=== PATIENT | male | born 1980 | race Caucasian/White ===

== ENCOUNTER 2021-11-09 10:02 | Outpatient (REF) | payer OTHER, SELFPAY ==
--- NOTE | ~2021-11-09 | XR_ITS ---
EXAMINATION: XR HAND, LEFT CLINICAL INFORMATION: Pain COMPARISON: None TECHNIQUE: PA, lateral, and oblique views of the left hand. FINDINGS: No deformity of the fifth digit. There is a medullary lucent lesion proximal phalanx fourth digit. No definite matrix or fracture seen. No pathologic fracture. Cortex intact XR/XR hand LT min 3V IMPRESSION: No fracture. Lucent lesion within the fourth proximal phalanx. Appearance favors an enchondroma.
== END 2021-11-09 10:03 | disposition home or self-care (01) ==
LOC: HO.HMGCX 10:02
PROVIDERS: PCP Family Medicine; Visit Provider Physician Assistant
DX: M79.645 Pain in left finger(s) (principal)
CPT/HCPCS: 73130

== ENCOUNTER 2021-12-31 08:42 | Outpatient (REF) | payer OTHER, SELFPAY ==
[2021-12-31 11:22] LABS: MANUAL DIFF FLAG NO
[2021-12-31 11:26] LABS: Basophils Absolute Auto 0.1 X10*3/uL (0.0-0.2); Basophils Percent Auto 1.1 % (0-2); Eosinophils Absolute Auto 0.1 X10*3/uL (0.0-0.4); Eosinophils Percent Auto 1.9 % (0-4); Hematocrit 37.4 % (42.0-52.0); Hemoglobin 12.7 g/dl (14.0-18.0); Imm Gran Abs Auto 0.02 X10*3/uL (0.00-0.03); Imm Gran Pct Auto 0.3 % (0.0-0.4); Lymphocytes Absolute Auto 1.9 X10*3/uL (1.2-4.9); Lymphocytes Percent Auto 26.7 % (20-40); Mean Platelet Volume 10.2 fL (9.4-12.4); Monocytes Absolute Auto 1.2 X10*3/uL (0.1-1.2); Monocytes Percent Auto 16.5 % (2-11); Neutrophils Absolute Auto 3.9 x10*3/uL (2.0-8.3); Neutrophils Percent Auto 53.5 % (45-73); Platelet Count 180 X10*3/uL (160-400); Red Blood Count 3.63 X10*6/uL (4.60-5.80); Red Cell Distribution Width 12.5 % (11.0-16.0); White Blood Count 7.2 X10*3/uL (4.8-10.8)
[2021-12-31 12:21] LABS: TSH reflex Free T4 0.54 uIU/mL (0.32-4.0)
[2021-12-31 12:35] LABS: Albumin Level 4.2 g/dL (3.5-5.0); Anion Gap 18 (12-20); Bilirubin Total 0.2 mg/dL (0.0-1.0); Blood Urea Nitrogen 8 mg/dL (9-16); Carbon Dioxide 26 mmol/L (22-29); Chloride 104 mmol/L (96-108); Cholesterol 246 mg/dL; Estimated Glomerular Filt Rate > 60; Glucose Fasting 118 mg/dL (60-99); Potassium 4.1 mmol/L (3.3-5.1); Sodium 144 mmol/L (135-145); Total Protein 6.7 g/dL (6.5-8.0); Triglycerides 62 mg/dL
[2021-12-31 12:47] LABS: Alanine Aminotransferase 76 U/L (0-40); Alkaline Phosphatase 71 U/L (39-117); Aspartate Amino Transferase 163 U/L (5-37); HDL Cholesterol 146 mg/dL; LDL Cholesterol Calculated 88 mg/dl
== END 2021-12-31 08:43 | disposition home or self-care (01) ==
LOC: HO.HMGCLDS 08:42
PROVIDERS: PCP Family Medicine; Visit Provider Family Medicine
DX: Z00.00 Encounter for general adult medical examination without abnormal findings (principal); Z12.5 Encounter for screening for malignant neoplasm of prostate
CPT/HCPCS: 36415; 80053; 80061; 84153; 84443; 85025

== ENCOUNTER 2022-01-11 11:39 | Outpatient (REF) | payer OTHER, SELFPAY ==
[2022-01-11 12:25] LABS: Influenza A PCR NEGATIVE (Negative); Influenza B PCR NEGATIVE (Negative); Resp Syncy Virus RNA Qual PCR NEGATIVE (Negative); SARS COV2 PCR INHOUSE NEGATIVE (Negative)
== END 2022-01-11 11:40 | disposition home or self-care (01) ==
LOC: HO.LNP 11:39
PROVIDERS: Visit Provider Internal Medicine
DX: Z20.822 Contact with and (suspected) exposure to COVID-19 (principal); R43.9 Unspecified disturbances of smell and taste
CPT/HCPCS: 0241U

== ENCOUNTER 2023-08-22 09:01 | Outpatient (AMB) | payer OTHER, SELFPAY ==
[2023-08-22 09:21] VITALS: BP 122/80; PULSE 98; O2SAT 97; BMI 19.4
--- NOTE | 2023-08-22 09:21 | AM.OFFWIN_ITS ---
Intake Vital Signs 08/22/23 09:21 Height 5 ft 11 in Weight 139 lb BMI 19.4 BP 122/80 Blood Pressure Location Rt brachial Position Sitting Pulse 98 Pulse Source Pulse Oximeter Pulse Oximetry (%) 97 Oxygen Delivery Method Room Air Intake Visit Reasons: EP pain/No feeling below the knees going down Intake Note: Pt is here today c/o bilateral knee feeling numbness and red blotches Patient Tobacco Use Status: Current everyday Tobacco user Allergies sulfamethoxazole [From Bactrim] Allergy (Intermediate, Verified 08/22/23 09:22) Blister trimethoprim [From Bactrim] Allergy (Intermediate, Verified 08/22/23 09:22) Blister HPI HPI Comments History of Present Illness Details 43 y/o male patient who presents to walk in clinic with c/o feeling tingling and numbness on lower extremities. Pt reports Skin color discoloration below Knees. He does report diminished sensation below knees/lower legs. Pt also c/o mild hand tremors. H/o chronic Alcohol abuse, stopped ~ 1 year ago. Former cigarette smoker. Smokes [place]. Denies any chronic medical problems. [facility] Social History Housing: House Patient Tobacco Use Status: Current everyday Tobacco user e-Cigarette/Vaping Use: Never Used Second Hand Smoke Exposure: No service: No Current occupational status: employed Current occupational exposures/hazards: No Cognitive needs: No Hearing needs: No Vision needs: No Review of Systems Const All systems reviewed & are unremarkable except as noted in HPI and below Physical Exam Vital Signs: Last Vital Signs Pulse 98 08/22/23 09:21 BP 122/80 08/22/23 09:21 Pulse Ox 97 08/22/23 09:21 Oxygen Delivery Method Room Air 08/22/23 09:21 BMI result Body Mass Index 19.4 Const Orientation/consciousness: patient oriented x3 Neuro General: patient oriented x3, gait normal and moves all extremities Motor exam (neuro): 5/5 motor strength present throughout Sensory Exam: Abnormal lower extremity sensory exam (Diminished sensation on lower legs. Skin color pink, ROM WNL) Extrem Right lower extremity: lower leg Details: normal to inspection; no erythema, no tenderness and no ecchymosis Left lower extremity: lower leg Details: normal to inspection, no edema and warm th (normal skin temperature); no erythema, no tenderness, no lacerations and no crepitus Psych Speech and movement: Normal speech and movement present Assessment & Plan Assessment & Plan (1) Decreased sensation of lower extremity: Code(s): R20.8 - Other disturbances of skin sensation Plan: No clear etiology of the presenting symptoms. DDx's: Spinal cord injury vs brain injury Patient does not have a PCP, needs to establish care Advised Pt to go to ED for further evaluation. Coding Level of Care Code New Pt Level 3 (85843) Diagnoses Decreased sensation of lower extremity R20.8 Time Spent (min) 15
== END 2023-08-22 10:06 | disposition home or self-care (01) ==
PROVIDERS: PCP Family Medicine; Visit Provider Nurse Practitioner Family
DX: R20.8 Other disturbances of skin sensation (principal)
CPT/HCPCS: 99203